=== PATIENT | male | born 1970 | race Caucasian/White ===

== ENCOUNTER 2019-07-07 08:15 | Observation (INO) | payer BC ==
[~2019-07-07 08:15] MED LIST: Lactated Ringers 1,000 ML IV SCH; ceFAZolin 2 GM in Premix Bag 1 BAG IV SCH
[2019-07-07] MEDS ORDERED: fentaNYL 100 MCG/2 ML SDV ONE ×2 (09:25→11:07)
[2019-07-07] MEDS ORDERED: Midazolam 1 MG/ML 2 ML SDV ONE (09:25)
[2019-07-07] MEDS ORDERED: Dexamethasone 4 MG/ML 5 ML MDV ONE (09:26)
[2019-07-07] MEDS ORDERED: Bupivacaine 0.5% 30 ML SDV ONE (09:27)
--- NOTE | 2019-07-07 09:48 | PCM.SN ---
- Free Text/Narrative Note: procedure note. ISB in pre op holding consent obtained, time out performed. skin cleaned and marked. local wheel of xylo given. sedated with 2 mg versed and 50 mcg of fentanyl. full monitors. + twitch in ant shoulder extinguished at .3 ma, dosed incrementally 5 ml at a time to volume of 28 ml of 0.5% bupivicaine with 8 mg (2 ml) of dexamethasone. No comps.
--- NOTE | 2019-07-07 09:51 | PCM.PREANE ---
Preanesthetic Assessment - Anesthesia/Transfusion/Family Hx Anesthesia History: No Prior Anesthesia Family History of Anesthesia Reaction: No Transfusion History: No Prior Transfusion(s) - Review of Systems General: No Symptoms Pulmonary: Other (JOSE) Cardiovascular: No Symptoms Gastrointestinal: No Symptoms Other: Reports: Anxiety - Physical Assessment NPO Status Date: 07/06/19 Vital Signs: Last Vital Signs Temp 98.1 F 07/07/19 09:17 Pulse 83 07/07/19 09:17 Resp 16 07/07/19 09:17 BP 142/89 H 07/07/19 09:17 Pulse Ox 98 07/07/19 09:17 Height: 5 ft 8 in Weight: 106.141 kg Mental Status: Alert & Oriented x3 Airway Class: Mallampati = 2 Dentition: Reports: Normal Dentition ROM/Head Extension: Full Lungs: Clear to Auscultation, Normal Respiratory Effort Cardiovascular: Regular Rate, Regular Rhythm - Allergies Allergies/Adverse Reactions: Allergies Allergy/AdvReac Type Severity Reaction Status Date / Time latex Allergy Itching Verified 07/07/19 09:13 - Blood Blood Available: No - Anesthesia Plan Pre-Op Medication Ordered: None - Acknowledgements Anesthesia Type Planned: General Anesthesia Pt an Appropriate Candidate for the Planned Anesthesia: Yes Alternatives and Risks of Anesthesia Discussed w Pt/Guardian: Yes Pt/Guardian Understands and Agrees with Anesthesia Plan: Yes Additional Comments: PMH: JOSE- uses CPAP intermittently, anx/dep, htn- on b shannan x 3 weeks, IBS, HLD, latex allergy, AUD- stopped 3 weeks ago' PLAN: get with ISB for post op pain control PreAnesthesia Questionnaire - Past Health History Medical/Surgical History: Denies Medical/Surgical History Cardiovascular History: Reports: Hypertension Other Cardiovascular History: had a heart murmur as a child- outgrew it Respiratory History: Reports: Sleep Apnea Other Respiratory History: has a CPAP but doesn't use Gastrointestinal History: Reports: Other (See Below) Other Gastrointestinal History: occasional heartburn- takes Tums Musculoskeletal History: Reports: Fracture Other Musculoskeletal History: hx of fx left wrist and left clavicle, hx of ACL tear left knee Neurological History: Reports: Concussion Psychiatric History: Reports: Anxiety Endocrine/Metabolic History: Reports: Obesity/BMI 30+ Dermatologic History: Reports: Other (See Below) Other Dermatologic History: rash on top of left hand - Past Surgical History Head Surgeries/Procedures: Reports: None HEENT Surgical History: Reports: Oral Surgery Other HEENT Surgeries/Procedures: has one upper right dental implant Male Surgical History: Reports: Vasectomy - SUBSTANCE USE Smoking Status *Q: Former Smoker Tobacco Use Within Last Twelve Months: No Recreational Drug Use History: No - HOME MEDS Home Medications: Home Meds Betamethasone Dipropionate [Diprosone 0.05% Crm] 1 dose TOP BID PRN 06/30/19 [ History] Metoprolol Succinate 50 mg PO QAM 06/30/19 [History] busPIRone HCl [Buspirone HCl] 15 mg PO BID 06/30/19 [History] - CURRENT (IN HOUSE) MEDS Current Meds: Current Medications Cefazolin Sodium/Dextrose 2 gm (/ Premix) 50 mls @ 100 mls/hr IV ONCALL [facility] Lactated Ringer's (Ringers, Lactated) 1,000 mls @ 100 mls/hr IV ASDIRECTED [facility] Last Admin: 07/07/19 09:13 Dose: 100 mls/hr Discontinued Medications Bupivacaine HCl (Marcaine 0.5%) Confirm Administered Dose 30 ml .ROUTE .STK-MED ONE Stop: 07/07/19 09:28 Dexamethasone (Dexamethasone) Confirm Administered Dose 20 mg .ROUTE .STK-MED ONE Stop: 07/07/19 09:27 Fentanyl (Sublimaze) Confirm Administered Dose 100 mcg .ROUTE .STK-MED ONE Stop: 07/07/19 09:26 Lidocaine HCl (Xylocaine-Mpf 1%) Confirm Administered Dose 5 ml .ROUTE .STK-MED ONE Stop: 07/07/19 09:27 Midazolam HCl (Versed 1 Mg/Ml) Confirm Administered Dose 2 mg .ROUTE .STK-MED ONE Stop: 07/07/19 09:26
[2019-07-07] MEDS ORDERED: ceFAZolin 1 GM Vial ONE (10:58)
[2019-07-07] MEDS ORDERED: Propofol 200 MG/20 ML SDV ONE ×2 (11:07→11:30)
[2019-07-07] MEDS ORDERED: Lidocaine 2% 5 ML SDV ONE (11:14)
[2019-07-07] MEDS ORDERED: Rocuronium 100 MG/10 ML Syringe ONE (11:35)
[2019-07-07] MEDS ORDERED: ceFAZolin/Dextrose,Iso-Osmotic 2 GM/50 ML Duplex Bag IV ONE (11:59)
[2019-07-07] MEDS ORDERED: Ondansetron 4 MG/2 ML SDV ONE (12:03)
[2019-07-07] MEDS ORDERED: Ketorolac 30 MG/ML SDV ONE (12:03)
[2019-07-07] MEDS ORDERED: Phenylephrine/Normal Saline 100 MCG/ML 10 ML Syringe ONE (12:03)
[2019-07-07] MEDS ORDERED: ePHEDrine 50 MG/ML SDV ONE (12:14)
[2019-07-07] MEDS ORDERED: diphenhydrAMINE 50 MG/ML SDV IVPUSH PRN (12:36)
[2019-07-07] MEDS ORDERED: Sodium Chloride 0.9% 2.5 ML Syringe FLUSH PRN (12:36)
[2019-07-07] MEDS ORDERED: Acetaminophen/oxyCODONE 325-5 MG Tab PO PRN (12:36)
[2019-07-07] MEDS ORDERED: Ondansetron 4 MG/2 ML SDV IVPUSH PRN (12:36)
[2019-07-07] MEDS ORDERED: Sodium Chloride 0.9% 10 ML Syringe FLUSH PRN (12:36)
[2019-07-07] MEDS ORDERED: EPINEPHrine 1:10,000 1 MG/10 ML Syringe IVPUSH PRN (12:47)
[2019-07-07] MEDS ORDERED: Naloxone 0.4 MG/ML Syringe IVPUSH PRN (12:47)
[2019-07-07] MEDS ORDERED: Atropine 0.1 MG/ML 10 ML Syringe IVPUSH PRN (12:47)
[2019-07-07] MEDS ORDERED: fentaNYL 100 MCG/2 ML SDV IVPUSH PRN (12:47)
--- NOTE | 2019-07-07 12:47 | PCM.OPNOTE ---
- General Post-Op/Procedure Note Date of Surgery/Procedure: 07/07/19 Operative Procedure(s): Right shoulder open rotator cuff repair and acromioplasty Findings: Right shoulder full-thickness supraspinatus rotator cuff tear, 2 cm wide, 1 cm of retraction Pre Op Diagnosis: Right shoulder full-thickness supraspinatus rotator cuff tear Post-Op Diagnosis: Right shoulder full-thickness supraspinatus rotator cuff tear Anesthesia Technique: General ET Tube Primary Surgeon: Félix Gann Management Professor: Jesi Gallo Management Professor Was Necessary: Positioning and retraction during surgery EBL in mLs: 10 Complications: None Free Text/Narrative:: Patient had an MRI confirmed right shoulder full-thickness supraspinatus rotator cuff tear. We discussed the risks and benefits of surgery. All questions were answered. Patient consented to proceed with surgery. Patient was taken to the operating room. After general anesthesia, he was placed in a beachchair position. The right shoulder and upper extremity were prepped and draped in the usual sterile manner. An anterolateral deltoid splitting approach was used. Skin was incised with a scalpel. Subcutaneous tissue incised electrocautery. The deltoid was split in the raphae between the anterior and middle heads of the deltoid muscle. The anterior head of the deltoid was elevated subperiosteally off of the acromion. A full-thickness supraspinatus rotator cuff tear was immediately visualized in the subacromial space. An acromioplasty was performed with an oscillating saw taking an anterior cut and then an inferior cut. The undersurface of the acromion was smoothed with a rasp. Attracted edges of the supraspinatus tendon were excised with a scalpel to get a bleeding edge. The bony surface on the radial tuberosity was prepared with a Ronjair to remove any excess bone and create a bleeding bed for healing. A retraction suture was placed in the supraspinatus tendon. Retracting the tendon into place, there repair was performed with 2 [id number] margin convergence stitches. Then 2 #2 FiberWire Abel-Andres sutures were used to repair the tendon back to the greater tuberosity through bone tunnels. Wounds were then irrigated. Told was repaired back to the acromion with #5 Ethibond through bone tunnels in the acromion. The deltoid raphae was repaired with interrupted [id number] # 1 Vicryl sutures. Subcutaneous closure used 2-0 Vicryl sutures. Skin was closed with running Monocryl subcuticular suture. A sterile dressing was applied and the patient was accompanied to the recovery room in a stable condition. Pain management: Toradol, ibuprofen, oxycodone, and regional block. Venous thromboembolism prophylaxis: Not indicated for upper extremity soft tissue procedure. Prophylactic antibiotics: Ancef 2 doses. Restrictions: Patient is nonweightbearing on his right upper extremity for 3 months. He should wear a sling and do pendulum exercises only for the first 6 weeks, no active range of motion. At 6 weeks, he may discontinue the sling and begin active range of motion exercises with no lifting greater than 1 pound. At 3 months, patient may begin rotator cuff strengthening exercises in physical therapy.
--- NOTE | 2019-07-07 13:09 | PCM.POSTAN ---
POST ANESTHESIA ASSESSMENT - MENTAL STATUS Mental Status: Alert, Oriented - VITAL SIGNS Vital Signs: Last Vital Signs Temp 97.0 F 07/07/19 12:38 Pulse 99 07/07/19 13:03 Resp 12 07/07/19 13:03 BP 117/77 07/07/19 13:03 Pulse Ox 94 L 07/07/19 13:03 - RESPIRATORY Respiratory Status: Respiratory Rate WNL, Airway Patent, O2 Saturation Stable - CARDIOVASCULAR CV Status: Pulse Rate WNL, Blood Pressure Stable - GASTROINTESTINAL GI Status: No Symptoms - POST OP HYDRATION Hydration Status: Adequate & Stable
[2019-07-07] MEDS: Metoprolol Succinate 50 MG Tab.ER PO SCH (13:47)
[2019-07-07] MEDS ORDERED: Ketorolac 30 MG/ML SDV IVPUSH PRN (18:00)
[2019-07-07] MEDS: ceFAZolin 2 GM in Premix Bag 1 BAG IV SCH (18:35)
[2019-07-07] MEDS: busPIRone 5 MG Tab PO SCH (21:02)
[2019-07-08] MEDS: ceFAZolin 2 GM in Premix Bag 1 BAG IV SCH (04:20)
[2019-07-08] MEDS ORDERED: Ibuprofen 800 MG Tab PO SCH (06:00)
[2019-07-08 07:39] VITALS: BP 127/73; PULSE 67
[2019-07-08] MEDS: busPIRone 5 MG Tab PO SCH (08:56)
[2019-07-08] MEDS: Metoprolol Succinate 50 MG Tab.ER PO SCH (08:56)
--- NOTE | 2019-07-08 10:40 | PCM.SURGPN ---
- General Info Date of Service: 07/08/19 (829) Date of Surgery/Procedure: 07/07/19 POD#: 1 Post-Op Diagnosis: s/p Right open rotator cuff repair and acromioplasty Functional Status: Reports: Pain Controlled (Reports all night he had good pain relief (he had Regional block), not necessitating narcotic Rx overnight), Tolerating Diet (ate supper last evening without N/V.), Ambulating, Urinating - Review of Systems General: Reports: No Symptoms. Denies: Fever Pulmonary: Reports: No Symptoms. Denies: Shortness of Breath Cardiovascular: Reports: No Symptoms Gastrointestinal: Denies: Nausea, Vomiting Musculoskeletal: Reports: Other (Minimal right shoulder pain. Did c/o swelling right hand, which has resolved with performing fist pumps) Psychiatric: Reports: No Symptoms - Patient Data Vitals - Most Recent: Last Vital Signs Temp 36.9 C 07/08/19 07:38 Pulse 67 07/08/19 08:56 Resp 18 07/08/19 07:38 BP 127/73 07/08/19 08:56 Pulse Ox 98 07/08/19 07:38 Weight - Most Recent: 106.141 kg I&O - Last 24 Hours: Intake & Output 07/07/19 07/08/19 07/08/19 22:59 06:59 14:59 Intake Total 421 3000 Output Total 0 2500 Balance 421 500 Med Orders - Current: Current Medications Atropine Sulfate (Atropine 0.1 Mg/Ml) 1 mg IVPUSH ASDIRECTED PRN PRN Reason: Hypo-Perfusion Buspirone HCl (Buspar) 15 mg PO BID [facility] Last Admin: 07/08/19 08:56 Dose: 15 mg Diphenhydramine HCl (Benadryl) 25 mg IVPUSH Q4H PRN PRN Reason: Itching Epinephrine HCl (Epinephrine 1:10,000) 1 mg IVPUSH ASDIRECTED PRN PRN Reason: ACLS Guidelines Fentanyl (Sublimaze) 50 mcg IVPUSH Q5M PRN PRN Reason: Pain Cefazolin Sodium/Dextrose 2 gm (/ Premix) 50 mls @ 100 mls/hr IV ONCALL [facility] Lactated Ringer's (Ringers, Lactated) 1,000 mls @ 100 mls/hr IV ASDIRECTED [facility] Last Admin: 07/07/19 09:13 Dose: 100 mls/hr Ibuprofen (Motrin) 800 mg PO Q6H [facility] Last Admin: 07/08/19 05:39 Dose: 800 mg Metoprolol Succinate (Toprol Xl) 50 mg PO QAM [facility] Last Admin: 07/08/19 08:56 Dose: 50 mg Naloxone HCl (Narcan) 0.1 mg IVPUSH ASDIRECTED PRN PRN Reason: Respiratory Depression Ondansetron HCl (Zofran) 4 mg IVPUSH Q6H PRN PRN Reason: Nausea/Vomiting Oxycodone/Acetaminophen (Percocet 325-5 Mg) 1 - 2 tab PO Q6H PRN PRN Reason: Pain Last Admin: 07/08/19 10:02 Dose: 2 tab Sodium Chloride (Saline Flush) 10 ml FLUSH ASDIRECTED PRN PRN Reason: Keep Vein Open Sodium Chloride (Saline Flush) 2.5 ml FLUSH ASDIRECTED PRN PRN Reason: Keep Vein Open Discontinued Medications Bupivacaine HCl (Marcaine 0.5%) Confirm Administered Dose 30 ml .ROUTE .STK-MED ONE Stop: 07/07/19 09:28 Cefazolin Sodium (Ancef) Confirm Administered Dose 1 gm .ROUTE .STK-MED ONE Stop: 07/07/19 10:59 Cefazolin Sodium/Dextrose (Ancef) Confirm Administered Dose 2 gm IV .STK-MED ONE Stop: 07/07/19 12:00 Dexamethasone (Dexamethasone) Confirm Administered Dose 20 mg .ROUTE .STK-MED ONE Stop: 07/07/19 09:27 Ephedrine Sulfate (Ephedrine Sulfate) Confirm Administered Dose 50 mg .ROUTE .STK-MED ONE Stop: 07/07/19 12:15 Fentanyl (Sublimaze) Confirm Administered Dose 100 mcg .ROUTE .STK-MED ONE Stop: 07/07/19 09:26 Fentanyl (Sublimaze) Confirm Administered Dose 100 mcg .ROUTE .STK-MED ONE Stop: 07/07/19 11:08 Cefazolin Sodium/Dextrose 2 gm (/ Premix) 50 mls @ 100 mls/hr IV Q8H [facility] Stop: 07/08/19 03:29 Last Admin: 07/08/19 04:20 Dose: 100 mls/hr Ketorolac Tromethamine (Toradol) Confirm Administered Dose 30 mg .ROUTE .STK- MED ONE Stop: 07/07/19 12:04 Ketorolac Tromethamine (Toradol) 30 mg IVPUSH Q6H PRN PRN Reason: Pain Stop: 07/08/19 05:00 Last Admin: 07/08/19 05:40 Dose: 30 mg Lidocaine (Xylocaine-Mpf 2%) Confirm Administered Dose 5 ml .ROUTE .STK-MED ONE Stop: 07/07/19 11:15 Lidocaine HCl (Xylocaine-Mpf 1%) Confirm Administered Dose 5 ml .ROUTE .STK-MED ONE Stop: 07/07/19 09:27 Midazolam HCl (Versed 1 Mg/Ml) Confirm Administered Dose 2 mg .ROUTE .STK-MED ONE Stop: 07/07/19 09:26 Ondansetron HCl (Zofran) Confirm Administered Dose 4 mg .ROUTE .STK-MED ONE Stop: 07/07/19 12:04 Phenylephrine HCl (Phenylephrine In Ns 100 Mcg/Ml) Confirm Administered Dose 1 mg .ROUTE .STK-MED ONE Stop: 07/07/19 12:04 Propofol (Diprivan 20 Ml) Confirm Administered Dose 200 mg .ROUTE .STK-MED ONE Stop: 07/07/19 11:08 Propofol (Diprivan 20 Ml) Confirm Administered Dose 200 mg .ROUTE .STK-MED ONE Stop: 07/07/19 11:31 Rocuronium [place] (Zemuron) Confirm Administered Dose 100 mg .ROUTE .STK-MED ONE Stop: 07/07/19 11:36 Succinylcholine Chloride (Succinylcholine Chloride) Confirm Administered Dose 200 mg .ROUTE .STK-MED ONE Stop: 07/07/19 11:36 - Exam Wound/Incisions: Dressing Dry and Intact (Surgical dressing dry and intact to right shoulder), No Drainage Quality Assessment: DVT Prophylaxis (SCDs, but he was ambulating most of the night) General: Alert, Oriented, Cooperative, No Acute Distress Lungs: Normal Respiratory Effort Extremities: Other (RUE resting in arm sling. Actively performs wrist ROM. Sensation grossly intact to right hand. Capillary refill <2 seconds. ) Skin: Warm, Dry Neurological: Normal Gait, Normal Speech, Normal Tone Psy/Mental Status: Alert, Normal Affect, Normal Mood Sepsis Event Note - Evaluation Sepsis Screening Result: No Definite Risk - Focused Exam Vital Signs: Vital Signs Temp Pulse Pulse Resp BP BP Pulse Ox 07/08/19 08:56 67 127/73 07/08/19 07:38 36.9 C 67 18 127/73 98 07/08/19 04:00 36.9 C 73 14 105/75 95 07/08/19 00:00 36.6 C 72 16 105/75 95 Date Exam was Performed: 07/08/19 Time Exam was Performed: 10:35 - Problem List Review Problem List Initiated/Reviewed/Updated: Yes - My Orders Last 24 Hours: Active Orders 24 hr Category Date Time Status Activity as Tolerated [RC] .Routine Care 07/07/19 12:36 Active Blood Glucose Check, Bedside [RC] PRN Care 07/07/19 12:47 Active Communication Order [RC] ROUTINE Care 07/07/19 12:40 Active Cooling Warming Measures [RC] ASDIRECTED Care 07/07/19 12:38 Active Neurovascular Check [RC] Q2HR Care 07/07/19 12:36 Active Notify Provider Vital Signs [RC] ASDIRECTED Care 07/07/19 12:47 Active Overnight Pulse Oximetry [RC] Click to Edit Care 07/07/19 12:50 Active Oxygen Therapy [RC] PRN Care 07/07/19 12:47 Active RT Incentive Spirometry [RC] Q1HWA Care 07/07/19 12:39 Active Ready for Discharge [RC] PER UNIT ROUTINE Care 07/08/19 08:56 Active Vital Signs [RC] Q4H Care 07/07/19 12:40 Active Vital Signs [RC] Q5M Care 07/07/19 12:47 Active Regular Diet [DIET] Diet 07/07/19 Lunch Active Acetaminophen/oxyCODONE [Percocet 325-5 MG] Med 07/07/19 12:36 Active 1 - 2 tab PO Q6H PRN Atropine [Atropine 0.1 MG/ML] Med 07/07/19 12:47 Active 1 mg IVPUSH ASDIRECTED PRN EPINEPHrine [EPINEPHrine 1:10,000] Med 07/07/19 12:47 Active 1 mg IVPUSH ASDIRECTED PRN Ibuprofen [Motrin] Med 07/08/19 06:00 Active 800 mg PO Q6H Metoprolol Succinate [Toprol XL] Med 07/07/19 14:00 Active 50 mg PO QAM Naloxone [Narcan] Med 07/07/19 12:47 Active 0.1 mg IVPUSH ASDIRECTED PRN Ondansetron [Zofran] Med 07/07/19 12:36 Active 4 mg IVPUSH Q6H PRN Sodium Chloride 0.9% [Saline Flush] Med 07/07/19 12:36 Active 10 ml FLUSH ASDIRECTED PRN Sodium Chloride 0.9% [Saline Flush] Med 07/07/19 12:36 Active 2.5 ml FLUSH ASDIRECTED PRN busPIRone [Buspar] Med 07/07/19 21:00 Active 15 mg PO BID diphenhydrAMINE [Benadryl] Med 07/07/19 12:36 Active 25 mg IVPUSH Q4H PRN fentaNYL [Sublimaze] Med 07/07/19 12:47 Active 50 mcg IVPUSH Q5M PRN Convert IV to Saline Lock [OM.PC] Routine Oth 07/07/19 12:41 Ordered Ice Therapy [OM.PC] Routine Oth 07/07/19 12:38 Ordered Pulse Oximetry Continuous Monitoring [OM.PC] Routine Oth 07/07/19 12:36 Ordered Medication Orders Atropine Sulfate (Atropine 0.1 Mg/Ml) 1 mg IVPUSH ASDIRECTED PRN PRN Reason: Hypo-Perfusion Buspirone HCl (Buspar) 15 mg PO BID [facility] Last Admin: 07/08/19 08:56 Dose: 15 mg Admin: 07/07/19 21:02 Dose: 15 mg Diphenhydramine HCl (Benadryl) 25 mg IVPUSH Q4H PRN PRN Reason: Itching Epinephrine HCl (Epinephrine 1:10,000) 1 mg IVPUSH ASDIRECTED PRN PRN Reason: ACLS Guidelines Fentanyl (Sublimaze) 50 mcg IVPUSH Q5M PRN PRN Reason: Pain Cefazolin Sodium/Dextrose 2 gm (/ Premix) 50 mls @ 100 mls/hr IV ONCALL [facility] Lactated Ringer's (Ringers, Lactated) 1,000 mls @ 100 mls/hr IV ASDIRECTED [facility] Last Admin: 07/07/19 09:13 Dose: 100 mls/hr Ibuprofen (Motrin) 800 mg PO Q6H [facility] Last Admin: 07/08/19 05:39 Dose: 800 mg Metoprolol Succinate (Toprol Xl) 50 mg PO QAM [facility] Last Admin: 07/08/19 08:56 Dose: 50 mg Admin: 07/07/19 13:47 Dose: Naloxone HCl (Narcan) 0.1 mg IVPUSH ASDIRECTED PRN PRN Reason: Respiratory Depression Ondansetron HCl (Zofran) 4 mg IVPUSH Q6H PRN PRN Reason: Nausea/Vomiting Oxycodone/Acetaminophen (Percocet 325-5 Mg) 1 - 2 tab PO Q6H PRN PRN Reason: Pain Last Admin: 07/08/19 10:02 Dose: 2 tab Sodium Chloride (Saline Flush) 10 ml FLUSH ASDIRECTED PRN PRN Reason: Keep Vein Open Sodium Chloride (Saline Flush) 2.5 ml FLUSH ASDIRECTED PRN PRN Reason: Keep Vein Open - Assessment Assessment (Free Text/Narrative):: 1) s/p Right open rotator cuff repair and acromioplasty 2) overnight observation per anesthesia request for medical history of untreated JOSE - Plan Plan (Free Text/Narrative):: Jose is doing well. No N/V. Pain minimal. Ambulated most of the night. He is wanting to go home and I concur that he is ready to go home. Discussed discharge instructions regarding removal of dressing, use of arm sling , activity limitations to RUE, pain management with medications and ice to shoulder. He had no additional questions. Follow up appt scheduled. Call clinic sooner than scheduled appt if he has questions or acute concerns.
== END 2019-07-08 10:25 | disposition home or self-care (01) ==
LOC: MW.SDS 08:15 → MW.MS 10:14 → MW.SDS 07-08 10:10
PROVIDERS: ADMIT Orthopaedic Surgery; ATTEND Orthopaedic Surgery
DX: M75.121 Complete rotator cuff tear or rupture of right shoulder, not specified as traumatic (principal); I10 Essential (primary) hypertension; E78.5 Hyperlipidemia, unspecified; E66.9 Obesity, unspecified; F41.9 Anxiety disorder, unspecified; E88.81 Metabolic syndrome and other insulin resistance; R73.9 Hyperglycemia, unspecified; G47.30 Sleep apnea, unspecified; Z68.36 Body mass index [BMI] 36.0-36.9, adult; Z87.891 Personal history of nicotine dependence
CPT/HCPCS: 23130; 23412; A9270; J0330; J0690; J1100; J1885; J2001; J2250; J2370; J2405; J2704; J3010; J3490; J7120

== ENCOUNTER 2022-04-07 06:38 | Day surgery (SDC) | payer BC ==
[~2022-04-07 06:38] MED LIST changes: -ceFAZolin 2 GM in Premix Bag 1 BAG IV SCH
[2022-04-07] MEDS ORDERED: Propofol 200 MG/20 ML SDV ONE ×4 (07:29→08:36)
[2022-04-07] MEDS ORDERED: fentaNYL 100 MCG/2 ML SDV ONE ×3 (07:29→08:30)
[2022-04-07] MEDS ORDERED: Midazolam 1 MG/ML 2 ML SDV ONE (07:50)
[2022-04-07] MEDS ORDERED: Famotidine 20 MG/2 ML SDV ONE (08:17)
[2022-04-07] MEDS ORDERED: Glycopyrrolate 0.2 MG/ML SDV ONE (08:32)
[2022-04-07] MEDS ORDERED: diphenhydrAMINE 50 MG/ML SDV ONE (08:32)
[2022-04-07] MEDS ORDERED: Lactated Ringers 1,000 ML IV SCH (08:45)
[2022-04-07 09:17] VITALS: BP 107/53
[2022-04-07 11:08] VITALS: PULSE 86
== END 2022-04-07 09:45 | disposition home or self-care (01) ==
LOC: MW.SDS 06:38
PROVIDERS: ATTEND Surgery
DX: Z12.11 Encounter for screening for malignant neoplasm of colon (principal); F41.9 Anxiety disorder, unspecified; F32.A Depression, unspecified; I10 Essential (primary) hypertension; E78.5 Hyperlipidemia, unspecified; R73.9 Hyperglycemia, unspecified; G47.30 Sleep apnea, unspecified; Z91.040 Latex allergy status; Z79.82 Long term (current) use of aspirin; Z79.899 Other long term (current) drug therapy; Z98.890 Other specified postprocedural states; Z87.891 Personal history of nicotine dependence
CPT/HCPCS: 45378; J1200; J2250; J2704; J3010; J3490; J7120